=== PATIENT | male | born 1975 | race Caucasian/White ===

== ENCOUNTER 2021-02-14 15:06 | Outpatient (CLI) | payer BC ==
[2021-02-18 13:46] LABS: ANA SCREEN NEGATIVE (NEGATIVE)
== END 2021-02-14 15:07 | disposition home or self-care (01) ==
LOC: LAB.S 15:06
PROVIDERS: ATTEND Acupuncturist
DX: M25.50 Pain in unspecified joint (principal); R79.82 Elevated C-reactive protein (CRP)
CPT/HCPCS: 36415; 86038; 86141